=== PATIENT | female | born 1960 | race Caucasian/White ===

== ENCOUNTER 2018-10-15 21:27 | Emergency (ER) | payer BC, OTHER ==
[2018-10-15] MEDS ORDERED: Sodium Chloride 0.9% 1,000 ML IV SCH ×2 (22:45→23:45)
--- NOTE | 2018-10-15 23:18 | CRLCR ---
Indication: Abdomen pain Technique: Abdomen 2 view, 3 films plus chest x-ray. Comparison: None. Findings: Bowel: Small bowel loops are upper normal diameter without clear evidence of obstruction. Large amount of stool within the colon. Other: Suture material in the left upper quadrant and left lower quadrant. Impression: Nonspecific bowel gas pattern with a large amount of stool within the colon. Dictated by Nas Ruelas MD @ Oct 15 2018 11:15PM Signed by Dr. Nas Ruelas @ Oct 15 2018 11:17PM
[2018-10-15] MEDS ORDERED: Bisacodyl 10 MG Supp RECTAL ONE (23:44)
--- NOTE | 2018-10-16 01:02 | EDM.PDOC ---
ED HPI GENERAL MEDICAL PROBLEM - General Chief Complaint: Abdominal Pain Stated Complaint: ABDOMINAL,LOWER BACK,SIDE PAIN Time Seen by Provider: 10/15/18 22:15 Source of Information: Reports: Patient History Limitations: Reports: No Limitations - History of Present Illness INITIAL COMMENTS - FREE TEXT/NARRATIVE: pt arrived with pain in rt cva are and pain in her back. This had become quite severe. She did have a smal bm this am. She has not had a fever and has not been vomiting. She is post RNY Onset: Gradual Duration: Hour(s): Location: Reports: Abdomen Associated Symptoms: Reports: Other (pt did not vomit but she was nauseated. ) Treatments CREW PERSON: Reports: Other (see below) Other Treatments CREW PERSON: none Upper Abdomen Pain Score (Numeric/FACES): 1 - Related Data Allergies Allergy/AdvReac Type Severity Reaction Status Date / Time No Known Allergies Allergy Verified 10/15/18 22:40 Home Meds: Home Meds NK [No Known Home Meds] 10/15/18 [History] Past Medical History HEENT History: Reports: Cataract - Infectious Disease History Infectious Disease History: Reports: Chicken Pox - Past Surgical History HEENT Surgical History: Reports: Cataract Surgery GI Surgical History: Reports: Bariatric Procedure, Other (See Below) Other GI Surgeries/Procedures: twistesd bowel Social & Family History - Tobacco Use Smoking Status *Q: Never Smoker Second Hand Smoke Exposure: No - Caffeine Use Caffeine Use: Reports: None - Recreational Drug Use Recreational Drug Use: No ED ROS GENERAL - Review of Systems Review Of Systems: See Below Constitutional: Reports: No Symptoms HEENT: Reports: No Symptoms Respiratory: Reports: No Symptoms Cardiovascular: Reports: No Symptoms Endocrine: Reports: No Symptoms GI/Abdominal: Reports: No Symptoms : Reports: No Symptoms Musculoskeletal: Reports: Other ( pt has a swollen red toe) Skin: Reports: No Symptoms Neurological: Reports: No Symptoms ED EXAM, GI/ABD - Physical Exam Exam: See Below Text/Narrative:: pt has a swollen red 2nd toe on the left. This has been drainage for the past 2 days. Exam Limited By: No Limitations General Appearance: Alert, Anxious Ears: Normal TMs Nose: Normal Inspection Throat/Mouth: Normal Inspection Head: Atraumatic Neck: Normal Inspection Respiratory/Chest: No Respiratory Distress Cardiovascular: Regular Rate, Rhythm GI/Abdominal Exam: Soft, Other ( There is some tenderness but no true guarding. ) (Female) Exam: Deferred Rectal (Female) Exam: Other (pt had no masses her rectum was very full of hard stool. ) Back Exam: Normal Inspection Extremities: Normal Inspection Neurological: Alert, Oriented, Normal Cognition Psychiatric: Anxious Course - Vital Signs Last Recorded V/S: Last Vital Signs Temp 36.5 C 10/15/18 22:36 Pulse 66 10/15/18 22:36 Resp 14 10/15/18 22:36 BP 180/84 H 10/15/18 22:36 Pulse Ox 98 10/15/18 22:36 - Orders/Labs/Meds Labs: Laboratory Tests 10/15/18 10/15/18 10/15/18 Range/Units 22:40 22:40 22:40 WBC 6.7 (4.5-11.0) K/uL RBC 4.66 (3.30-5.50) M/uL Hgb 13.7 (12.0-15.0) g/dL Hct 41.9 (36.0-48.0) % MCV 90 (80-98) fL MCH 29 (27-31) pg MCHC 33 (32-36) % Plt Count 193 (150-400) K/uL Neut % (Auto) 74 H (36-66) % Lymph % (Auto) 19 L (24-44) % Blaine % (Auto) 5 (2-6) % Eos % (Auto) 1 L (2-4) % Baso % (Auto) 0 (0-1) % Sodium 141 (140-148) mmol/L Potassium 4.1 (3.6-5.2) mmol/L Chloride 102 (100-108) mmol/L Carbon Dioxide 27 (21-32) mmol/L Anion Gap 12.0 (5.0-14.0) mmol/L BUN 22 H (7-18) mg/dL Creatinine 0.8 (0.6-1.0) mg/dL Est Cr Clr Drug Dosing 62.63 mL/min Estimated GFR (MDRD) > 60 (>60) Glucose 118 H (74-106) mg/dL Calcium 9.0 (8.5-10.1) mg/dL Total Bilirubin 0.5 (0.2-1.0) mg/dL AST 23 (15-37) U/L ALT 28 (12-78) U/L Alkaline Phosphatase 73 (46-116) U/L C-Reactive Protein 0.18 (0.0-0.3) mg/dL Total Protein 7.5 (6.4-8.2) g/dL Albumin 3.8 (3.4-5.0) g/dL Globulin 3.7 H (2.3-3.5) g/dL Albumin/Globulin Ratio 1.0 L (1.2-2.2) Lipase (73-393) U/L Urine Color Urine Appearance Urine pH (4.5-8.0) Ur Specific [place] (1.008-1.030) Urine Protein (NEGATIVE) mg/dL Urine Glucose (UA) (NEGATIVE) mg/dL Urine Ketones (NEGATIVE) mg/dL Urine Occult Blood (NEGATIVE) Urine Nitrite (NEGATIVE) Urine Bilirubin (NEGATIVE) Urine Urobilinogen (NORMAL) mg/dL Ur Leukocyte Esterase (NEGATIVE) Urine RBC (0-5) Urine WBC (0-5) Ur Epithelial Cells Amorphous Sediment Urine Bacteria Urine Mucus Urine Other 10/15/18 10/15/18 Range/Units 22:40 22:45 WBC (4.5-11.0) K/uL RBC (3.30-5.50) M/uL Hgb (12.0-15.0) g/dL Hct (36.0-48.0) % MCV (80-98) fL MCH (27-31) pg MCHC (32-36) % Plt Count (150-400) K/uL Neut % (Auto) (36-66) % Lymph % (Auto) (24-44) % Blaine % (Auto) (2-6) % Eos % (Auto) (2-4) % Baso % (Auto) (0-1) % Sodium (140-148) mmol/L Potassium (3.6-5.2) mmol/L Chloride (100-108) mmol/L Carbon Dioxide (21-32) mmol/L Anion Gap (5.0-14.0) mmol/L BUN (7-18) mg/dL Creatinine (0.6-1.0) mg/dL Est Cr Clr Drug Dosing mL/min Estimated GFR (MDRD) (>60) Glucose (74-106) mg/dL Calcium (8.5-10.1) mg/dL Total Bilirubin (0.2-1.0) mg/dL AST (15-37) U/L ALT (12-78) U/L Alkaline Phosphatase (46-116) U/L C-Reactive Protein (0.0-0.3) mg/dL Total Protein (6.4-8.2) g/dL Albumin (3.4-5.0) g/dL Globulin (2.3-3.5) g/dL Albumin/Globulin Ratio (1.2-2.2) Lipase 194 (73-393) U/L Urine Color Yellow Urine Appearance Clear Urine pH 6.0 (4.5-8.0) Ur Specific [place] 1.020 (1.008-1.030) Urine Protein Negative (NEGATIVE) mg/dL Urine Glucose (UA) Normal (NEGATIVE) mg/dL Urine Ketones 15 H (NEGATIVE) mg/dL Urine Occult Blood Negative (NEGATIVE) Urine Nitrite Negative (NEGATIVE) Urine Bilirubin Negative (NEGATIVE) Urine Urobilinogen Normal (NORMAL) mg/dL Ur Leukocyte Esterase Negative (NEGATIVE) Urine RBC 0-5 (0-5) Urine WBC 0-5 (0-5) Ur Epithelial Cells Few Amorphous Sediment Not seen Urine Bacteria Few Urine Mucus Not seen Urine Other Meds: Medications Discontinued Medications Generic Name Dose Route Start Last Admin Trade Name Freq PRN Reason Stop Dose Admin Bisacodyl 10 mg 10/15/18 23:44 10/15/18 23:53 Dulcolax RECTAL 10/15/18 23:45 10 mg ONETIME ONE Administration Sodium Chloride 1,000 mls @ 999 mls/hr 10/15/18 22:45 10/15/18 23:48 Normal Saline IV 999 mls/hr ASDIRECTED DEE Administration Sodium Chloride 1,000 mls @ 999 mls/hr 10/15/18 23:45 Normal Saline IV ASDIRECTED DEE Magnesium Citrate 296 ml 10/16/18 01:23 10/16/18 01:40 Citrate Of Magnesia PO 10/16/18 01:24 296 ml ONETIME ONE Administration - Re-Assessments/Exams Free Text/Narrative Re-Assessment/Exam: 10/16/18 01:23 flat and upright of the abdoman showed alot of stool but no other acute problems. Her lab work was normal. She was given a ducolax supp which produced a large stool. She is feeling better. Her back pain is gone . She is having the abdomanal pain at a 1-2. Departure - Departure Time of Disposition: 01:25 Disposition: Home, Self-Care 01 Condition: Fair Clinical Impression: Constipation, Gastric bypass status for obesity - Discharge Information Instructions: Constipation, Adult, [id number] Referrals: Che De La Fuente PA [Primary Care Provider] - Forms: ED Department Discharge Care Plan Goals: Drink bottle of mag citrate, return if pain gets alot worse. If persistent problems please see Dr Beckman or Debbie.
[2018-10-16] MEDS ORDERED: Magnesium Citrate Solution 296 ML Bottle PO ONE (01:23)
== END 2018-10-16 01:41 | disposition home or self-care (01) ==
LOC: JP.ED 21:27
DX: K59.00 Constipation, unspecified (principal); Z98.84 Bariatric surgery status
CPT/HCPCS: 36415; 74022; 80053; 81001; 83690; 85025; 86140; 96360; 99284; A9270; J7030

== ENCOUNTER 2018-10-27 09:12 | Inpatient (IN) | payer OTHER ==
[~2018-10-27 09:12] MED LIST: Dexamethasone 4 MG/ML SDV ONE; Glycopyrrolate 0.2 MG/ML 5 ML MDV ONE; Neostigmine Methylsulfate 1 MG/ML 5 ML Syringe ONE; Ondansetron 4 MG/2 ML SDV ONE; Propofol 200 MG/20 ML SDV ONE; Rocuronium 50 MG/5 ML Vial ONE; Succinylcholine 200 MG/10 ML MDV ONE; fentaNYL 250 MCG/5 ML SDV ONE
[2018-10-27] MEDS ORDERED: Acetaminophen 500 MG Tab PO ONE (09:30)
[2018-10-27] MEDS ORDERED: Scopolamine 1.5 MG Transdermal Patch TRDERM ONE (09:30)
[2018-10-27] MEDS ORDERED: Dextrose 5%-Lactated Ringers 1,000 ML IV SCH (10:00)
[2018-10-27] MEDS ORDERED: Meropenem 500 MG SDV ONE (10:33)
[2018-10-27] MEDS ORDERED: cefOXitin 2 GM in Sodium Chloride 0.9% 50 ML IV ONE ×2 (10:50→11:00)
[2018-10-27] MEDS ORDERED: Ropivacaine 41 ML, Dexamethasone 8 MG, EPINEPHrine 0.4 MG, Sodium Chloride 0.9% 36.6 ML NERVRT SCH ×4 (11:15)
[2018-10-27] MEDS ORDERED: Ketamine 50 MG in Sodium Chloride 0.9% 49.5 ML IV SCH (11:15)
[2018-10-27] MEDS ORDERED: Ketamine 500 MG/5 ML MDV IV SCH (11:15)
[2018-10-27] MEDS ORDERED: Bupivacaine 0.5%/EPINEPHrine 1:200,000 50 ML MDV ONE (12:25)
[2018-10-27] MEDS ORDERED: Lactated Ringers 1,000 ML ONE (13:28)
[2018-10-27] MEDS ORDERED: HYDROmorphone/Normal Saline 15 MG/30 ML PCA IV PRN (13:51)
[2018-10-27] MEDS ORDERED: Naloxone 0.4 MG/ML SDV IV PRN (13:51)
[2018-10-27] MEDS ORDERED: Ondansetron 4 MG/2 ML SDV IVPUSH PRN (15:01)
[2018-10-27] MEDS ORDERED: Labetalol 20 MG/4 ML Syringe IVPUSH PRN (15:01)
[2018-10-27] MEDS ORDERED: Metoclopramide 10 MG/2 ML SDV IVPUSH PRN (15:01)
[2018-10-27] MEDS ORDERED: diphenhydrAMINE 50 MG/ML SDV IVPUSH PRN (15:01)
[2018-10-27] MEDS ORDERED: hydrOXYzine HCl 100 MG/2 ML SDV IM PRN (15:01)
[2018-10-27] MEDS ORDERED: Cyclobenzaprine 10 MG Tab PO PRN (15:17)
[2018-10-27] MEDS ORDERED: Pantoprazole 40 MG Vial IVPUSH SCH (17:00)
[2018-10-27] MEDS: cefOXitin 2 GM in Sodium Chloride 0.9% 50 ML IV SCH ×2 (18:03→23:49)
[2018-10-27] MEDS: MVI, Adult with Vitamin K 10 ML, Thiamine 100 MG, Chromium/Copper/Mang/Selen/Zn 1 ML in... IV SCH ×4 (18:04)
[2018-10-27] MEDS: Acetaminophen 325 MG Tab PO SCH ×2 (18:05→22:00)
[2018-10-27] MEDS: Heparin Sodium 5,000 Units/ML Vial SUBCUT SCH (20:47)
[2018-10-28] MEDS: Dextrose 5%-Lactated Ringers 1,000 ML IV SCH ×4 (00:04→22:50)
[2018-10-28] MEDS ORDERED: Iohexol 647 MG/ML 50 ML SDV PO STA (03:40)
[2018-10-28] MEDS: Acetaminophen 325 MG Tab PO SCH ×4 (03:53→21:16)
[2018-10-28] MEDS: cefOXitin 2 GM in Sodium Chloride 0.9% 50 ML IV SCH (04:06)
--- NOTE | 2018-10-28 05:13 | CRLCR ---
Indication: Revision of Bianca-en-Y Technique: Abdomen modified upper GI Comparison: 10/15/2018 Findings: Whole contrast transit is through the GE junction into the gastric pouch into the distal jejunum. No evidence of leakage of oral contrast. Impression: Transit of oral contrast through the GE junction across the gastric pouch into the distal jejunum without evidence of leakage. Dictated by Angelo Guerra MD @ 10/28/2018 5:12:49 AM Dictated by: Angelo Guerra MD @ 10/28/2018 05:12:55 (Electronically Signed)
[2018-10-28] MEDS ORDERED: Ondansetron 4 MG Tab.DIS PO PRN (07:55)
[2018-10-28] MEDS: SCOPOLAMINE PATCH CHECK TOP SCH (08:24)
[2018-10-28] MEDS: Heparin Sodium 5,000 Units/ML Vial SUBCUT SCH ×2 (08:25→19:38)
[2018-10-28] MEDS: oxyCODONE 5 MG Tab PO PRN ×2 (15:40→21:16)
--- NOTE | 2018-10-28 16:12 | PN ---
DATE OF SERVICE: 10/28/2018 SUBJECTIVE: Iker is postoperative day #1. Her pain has been controlled. Her upper GI was normal. Temperature max 99.3. Oral intake 1000 and urine output 750. REVIEW OF SYSTEMS: Remainder of review of systems negative for any pertinent positives and negatives. OBJECTIVE: GENERAL: Iker Donnelly is a 58-year-old female. VITAL SIGNS: TPR is 99.8, 73, 16, and blood pressure is 149/88. HEENT: Negative. NECK: Supple. HEART: Regular rate and rhythm. LUNGS: Clear. ABDOMEN: Dressings dry and intact. Abdominal binder is on. EXTREMITIES: Without peripheral edema. ASSESSMENT: Laparoscopic turned to laparotomy with, 1. Reduction of small bowel volvulus and closure of internal hernia. 2. Small bowel resection. 3. Resection of the jejunojejunostomy to re-establish Bianca-en-Y anatomy for partial small bowel obstruction secondary to small bowel volvulus and focal stricture at the jejunojejunostomy. Date of surgery, 10/27/2018. Surgeon, Antoni Beckman MD. PLAN: 1. Step-2 gastric bypass diet for breakfast and lunch. Advance to step-3 as tolerated. 2. Decrease IV to 100 mL per hour. 3. Discontinue POLISHER IMPLANT and continuous pulse ox. 4. Oxycodone 5 mg q.6 hours p.r.n. pain. 5. Dressing off, may shower. 6. We will evaluate p.r.n. or in a.m. Debbie Brar PA-C /[id number]
[2018-10-28] MEDS: Pantoprazole 40 MG Delayed-Release Granules 1 Packet PO SCH (16:34)
[2018-10-28] MEDS: MVI, Adult with Vitamin K 10 ML, Thiamine 100 MG, Chromium/Copper/Mang/Selen/Zn 1 ML in... IV SCH ×4 (16:37)
[2018-10-29] MEDS: Acetaminophen 325 MG Tab PO SCH ×4 (03:15→21:08)
[2018-10-29] MEDS ORDERED: Magnesium Hydroxide 400 MG/5 ML Susp 30 ML Cup PO ONE (08:15)
[2018-10-29] MEDS: Docusate Sodium 100 MG Cap PO SCH ×2 (08:39→21:07)
[2018-10-29] MEDS: Heparin Sodium 5,000 Units/ML Vial SUBCUT SCH ×2 (08:43→21:07)
[2018-10-29] MEDS: SCOPOLAMINE PATCH CHECK TOP SCH (09:00)
[2018-10-29] MEDS ORDERED: Cyanocobalamin (Vitamin B12) 1,000 MCG/ML SDV IM ONE (09:00)
[2018-10-29] MEDS ORDERED: Bisacodyl 5 MG Tab PO ONE (09:15)
--- NOTE | 2018-10-29 10:43 | PN ---
DATE OF SERVICE: 10/29/2018 SUBJECTIVE: Iker has been up ambulating. Vital signs have been stable. Oral intake 1000 mL. Urine output 750 was recorded. She has had 50% of breakfast, lunch and her bedtime snack. Nothing was recorded for her dinner. She is not passing any flatus. REVIEW OF SYSTEMS: Remainder of review of systems negative for any pertinent positives and negatives. OBJECTIVE: GENERAL: Iker is a pleasant 58-year-old female. She is alert and orientated. VITAL SIGNS: TPR 97.6, 67, 16, and blood pressure 144/92. HEENT: Negative. NECK: Supple. HEART: Regular rate and rhythm. LUNGS: Clear. ABDOMEN: Dressings dry and intact. Abdominal binder is on. EXTREMITIES: Without peripheral edema. ASSESSMENT: Laparoscopic turned to laparotomy with, 1. Reduction of small bowel volvulus and closure of internal hernia. 2. Small bowel resection. 3. Resection of the jejunostomy to re-establish Bianca-en-Y anatomy for partial small bowel obstruction secondary to small bowel volvulus and focal stricture at the jejunostomy. Date of surgery, 10/27/2018. Surgeon, Antoni Beckman MD. PLAN: 1. Milk of magnesia 30 mL one time now. 2. Dulcolax two tablets one hour after milk of magnesia. 3. Colace 100 mg b.i.d. 4. To continue to work on lungs, ambulation, and we will evaluate p.r.n. or in a.m. Debbie Brar PA-C /[id number] MTDD
[2018-10-29] MEDS ORDERED: Furosemide 20 MG Tab PO ONE (11:36)
[2018-10-29] MEDS: Pantoprazole 40 MG Delayed-Release Granules 1 Packet PO SCH (16:05)
[2018-10-29] MEDS ORDERED: Furosemide 40 MG Tab PO ONE (16:45)
[2018-10-29] MEDS ORDERED: Potassium Chloride 20 MEQ Tab.ER PO ONE ×2 (17:00→21:00)
[2018-10-29] MEDS: oxyCODONE 5 MG Tab PO PRN (21:10)
[2018-10-30] MEDS: Acetaminophen 325 MG Tab PO SCH ×2 (04:01→10:03)
[2018-10-30] MEDS: Docusate Sodium 100 MG Cap PO SCH (09:05)
[2018-10-30] MEDS: Heparin Sodium 5,000 Units/ML Vial SUBCUT SCH (09:05)
--- NOTE | 2018-10-30 11:59 | DISCH ---
ADMISSION DIAGNOSES: 1. Partial small bowel obstruction. 2. SP Bianca-en-Y gastric bypass surgery. 3. Unspecified surgical malabsorption. 4. B12 deficiency. 5. History of low ferritin. 6. Trochanteric bursitis of right hip. DISCHARGE DIAGNOSES: Laparoscopic turned to laparotomy with: 1. Reduction of small bowel volvulus and closure of internal hernia. 2. Small bowel resection. 3. Resection of the jejunostomy to re-establish Bianca-en-Y anatomy. 4. Partial small bowel obstruction secondary to small bowel volvulus and focal stricture at the jejunostomy. 5. Date of surgery: 10/27/2018. 6. Surgeon: Antoni Beckman MD. HISTORY: Iker is a 58-year-old female who had several weeks of postprandial abdominal pain. After preoperative evaluation and discussion of possible risks and possible complications, she wished to proceed with surgical procedure. HOSPITAL COURSE: Surgery was on 10/27/2018. She had no operative complications. On postoperative day #1, was started on step 2 gastric bypass diet, advanced to step 3. She was changed to oral pain medication. On postoperative day #2, she had good bowel stimulation. Vital signs remained stable. Her pain was well managed. Her activity was good. On postoperative day #3, she was able to be discharged to home. PHYSICAL EXAMINATION: GENERAL: Iker Donnelly is a pleasant 58-year-old female. VITAL SIGNS: Height is 5 feet 3.39 inches, weight is 173 pounds. TPR 98, 68, 16, blood pressure 126/82. HEENT: Negative. NECK: Supple. HEART: Regular rate and rhythm. LUNGS: Clear. ABDOMEN: [place] intact. Aquacel dressing was removed. Incision looks good. There is no redness or drainage. Abdominal binder has been on. EXTREMITIES: Without peripheral edema. DISPOSITION: Discharged to home. CONDITION: Stable and improving. FOLLOWUP: Followup appointment with Debbie rBar PA-C, on 11/09/2018 at 10:00 a.m. HOME MEDICATIONS: 1. Tylenol 650 mg oral q.6 h. p.r.n. pain. 2. Colace 100 mg oral twice daily. 3. Zofran ODT 4 mg every 4 hours p.r.n. nausea, #30. 4. Oxycodone 5 mg q.4 h. p.r.n. pain #40. 5. To resume home medication of Flexeril 10 mg 3 times a day p.r.n. muscle spasms, multivitamin as b.i.d. DISCHARGE DIET: Step 3 gastric bypass diet. Drink 8 to 10 glasses of water a day. ACTIVITY: No lifting over 10 pounds for 6 weeks. Other activity: Walk at least 6 times daily inside your home. Driving: Do not drive for 1 week and while on pain medication. Shower/bathing: May shower. DISCHARGE INSTRUCTIONS: Notify provider if any fever, increased pain, nausea, or vomiting. Keep site clean and dry. Wear abdominal binder for 6 weeks and then as tolerated. SPECIAL INSTRUCTIONS: Use incentive spirometer 10 times every hour while awake.
--- NOTE | 2018-11-02 14:50 | OR ---
DATE OF PROCEDURE: 10/27/2018 PREOPERATIVE DIAGNOSIS: Partial small bowel obstruction. POSTOPERATIVE DIAGNOSES: 1. Partial small bowel obstruction, secondary to small bowel volvulus. 2. 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 PROCEDURE: Diagnostic laparoscopy converted to laparotomy with: 1. Reduction of small bowel volvulus and closure of internal hernia (88302). 2. Small bowel resection (28677). 3. Separate jejunojejunostomy to re-establish the patient's Bianca-en-Y anatomy (70197). ANESTHESIA: General. PEDIATRIC ASSISTANT: MARYAM Heredia. INDICATIONS FOR PROCEDURE: This is a 58-year-old female presenting with a picture of partial small bowel obstruction, status post previous Bianca-en-Y gastric bypass. Plan is to proceed with a diagnostic laparoscopy and laparotomy if necessary and procedures as indicated including possible bowel resection. Potential risks including bleeding, infection, leaks from GI tract anastomosis, and possible recurrence of the problem overtime were all reviewed, and the patient wishes to proceed. DETAILS OF PROCEDURE: The patient was taken to the operating room, and after general endotracheal anesthesia was induced, a Triana catheter was inserted and the abdomen prepped and draped. The patient at that point had been converted to a lithotomy position as well. In the left lower quadrant, a transverse incision was made and the peritoneal cavity entered under direct vision with an Optiview trocar, inflated to 15 mmHg pressure with CO2. Following this, bilateral transversus abdominis plane blocks were placed, and 3 additional 5 mm trocars were positioned, 1 on the right and 2 on the left side. The patient had a significant amount of small bowel that had a slightly dusky appearance to it, suggestive of some venous hypertension. As one traced out the Bianca limb, it became evident that the patient was once again involved in a small bowel volvulus. Initial attempts at reduction of this laparoscopically were felt to be unsafe to proceed with, as there was quite a bit of edema and tension upon trying to reduce the small bowel. Given this, the trocars were removed and conversion to open laparotomy was undertaken. After removal the trocars, a midline incision from the umbilicus roughly 4 fingerbreadths superiorly was then made and carried down through the full-thickness of the abdominal wall and into the peritoneal cavity. On entering the peritoneal cavity, the volvulus was eventually able to be manually reduced. This was a volvulus underneath the Bianca limb going from a [id number] direction. Upon its reduction, all of the bowel appeared to be viable. There was quite a bit in the way of stricturing at the point where the Bianca limb entered the jejunojejunostomy, and this was felt to be somewhat problematic and thus resected. Given this, the acuna components of the jejunojejunostomy were divided almost flush with the anastomosis with ROBIN staplers, as was the underlying mesentery. Small bowel continuity was then accomplished with initial anastomosis between what had been the end of the biliopancreatic limb to the proximal end of the common limb. This was accomplished with internal firing of the Endo-ROBIN 60 mm stapler. Common opening was closed transversely with the same stapler, and the angles anastomosed. These were reinforced with 3-0 Vicryl stitch and the underlying mesenteric defect with a 2-0 silk stitch. The patient was felt to benefit somewhat from some additional malabsorption, given some persistent element of obesity. As discussed with the patient preoperatively, this would be done if we needed to resect the jejunojejunostomy. The patient was noted to have, at this point, a 70 cm Bianca limb, and given this, the ileocecal valve was identified and walked back 330 cm, thus giving the patient 400 cm total alimentary limb. At that level, the side-to- side enteroenterostomy was accomplished with internal firing of the ROBIN stapler, and the common opening was closed. The mesenteric defect and angles of anastomosis were as per the initial anastomosis. At this point, no further problems were noted. The omentum came down over the incision satisfactorily, so no mesh was required in that regard, and the midline fascia was then approximated with #2 Vicryl stitch and the skin with caitlyn. Dressing was applied. The patient was taken to the recovery room in satisfactory condition. Antoni Beckman MD /[id number]
== END 2018-10-30 12:38 | disposition home or self-care (01) | DRG 330 ==
LOC: JP.SDSSCHI 09:12 → JP.SDS 09:13 → EDSTATUS 13:00 → JP.MS 13:45
PROVIDERS: ADMIT Surgery; ATTEND Surgery
PROC: 0DS80ZZ Reposition Small Intestine, Open Approach (ICD-10-PCS; principal; 2018-10-27)
PROC: 0DBA0ZZ Excision of Jejunum, Open Approach (ICD-10-PCS; 2018-10-27)
PROC: 0DJW4ZZ Inspection of Peritoneum, Percutaneous Endoscopic Approach (ICD-10-PCS; 2018-10-27)
PROC: 0D1A0ZA Bypass Jejunum to Jejunum, Open Approach (ICD-10-PCS; 2018-10-27)
DX: K56.2 Volvulus (principal); K91.2 Postsurgical malabsorption, not elsewhere classified; K46.9 Unspecified abdominal hernia without obstruction or gangrene; Z53.31 Laparoscopic surgical procedure converted to open procedure; K56.609 Unspecified intestinal obstruction, unspecified as to partial versus complete obstruction; Z98.84 Bariatric surgery status; Z98.0 Intestinal bypass and anastomosis status; E53.8 Deficiency of other specified B group vitamins; M70.61 Trochanteric bursitis, right hip
CPT/HCPCS: 74240; 94762; A9270-GY; C9113; J0171; J0330; J0694; J1100; J1170; J1644; J2185; J2405; J2704; J2710; J2795; J3010; J3411; J3420; J3490; J7042; J7050; J7120; Q9967

== ENCOUNTER 2023-06-28 18:11 | Emergency (ER) | payer OTHER | END 2023-06-28 21:10 | disposition home or self-care (01) | LOC: JP.ED 18:11 | DX: S83.91XA Sprain of unspecified site of right knee, initial encounter (principal); W22.8XXA Striking against or struck by other objects, initial encounter | CPT/HCPCS: 73562-26-RT; 73562-RT; 99282; 99283 ==